=== PATIENT | male | born 1985 | race American Indian/Alaskan Native ===

== ENCOUNTER 2017-06-29 04:07 | Emergency (ER) | payer OTHER ==
[2017-06-29 04:22] VITALS: BP 123/85
[2017-06-29 07:22] LABS: Bilirubin,Urine NEG (Negative); Blood,Urine NEG (Negative); Ketones,Urine NEG (Negative); Leukocyte Esterase,Urine LG (Negative); Mucus,Urine FEW /HPF; Nitrite,Urine NEG (Negative)
[2017-06-29] MEDS ORDERED: XYLOCAINE 2% INFILTRATI ONE (07:51)
--- NOTE | 2017-06-29 07:51 | Emergency Department Report ---
- General Chief complaint: Skin/Abscess/Foreign Body Stated complaint: BOIL ON NECK Time Seen by Provider: 06/29/17 07:25 Source: patient Mode of arrival: Ambulatory Limitations: No Limitations - History of Present Illness Initial comments: 32-year-old male past medical history morbid obesity, history of sebaceous cysts presents with complaint of draining cyst to back of neck. Patient is awake alert and oriented 3 not in acute distress denies fevers or chills. States he has had this one for approximately one week. Denies any difficulty moving his neck. States it has been draining pus. MD complaint: abscess/boil Location: neck Severity: moderate Severity scale (0 -10): 4 Quality: aching Consistency: constant Treatments Prior to Arrival: none - Related Data Previous Rx's Medication Instructions Recorded Last Taken Type Cephalexin [Keflex] 500 mg PO BID #14 capsule 06/29/17 Unknown Rx Ibuprofen [Motrin] 800 mg PO Q8HR PRN #30 tablet 06/29/17 Unknown Rx Sulfamethoxazole/Trimethoprim 1 each PO BID #14 tablet 06/29/17 Unknown Rx [Bactrim DS TAB] Allergies Allergy/AdvReac Type Severity Reaction Status Date / Time No Known Allergies Allergy Unverified 05/21/13 14:38 Abscess Boil HPI - HPI Chief Complaint: Skin/Abscess/Foreign Body Stated Complaint: BOIL ON NECK Time Seen by Provider: 06/29/17 07:25 Home Medications: Previous Rx's Medication Instructions Recorded Last Taken Type Cephalexin [Keflex] 500 mg PO BID #14 capsule 06/29/17 Unknown Rx Ibuprofen [Motrin] 800 mg PO Q8HR PRN #30 tablet 06/29/17 Unknown Rx Sulfamethoxazole/Trimethoprim 1 each PO BID #14 tablet 06/29/17 Unknown Rx [Bactrim DS TAB] Allergies/Adverse Reactions: Allergies Allergy/AdvReac Type Severity Reaction Status Date / Time No Known Allergies Allergy Unverified 05/21/13 14:38 ED Review of Systems ROS: Stated complaint: BOIL ON NECK Other details as noted in HPI Constitutional: denies: chills, fever Eyes: denies: eye pain, eye discharge, vision change ENT: denies: ear pain, throat pain Respiratory: denies: cough, shortness of breath, wheezing Cardiovascular: denies: chest pain, palpitations Endocrine: no symptoms reported Gastrointestinal: denies: abdominal pain, nausea, diarrhea Genitourinary: denies: urgency, dysuria Musculoskeletal: denies: back pain, joint swelling, arthralgia Skin: denies: rash, lesions Neurological: denies: headache, weakness, paresthesias Psychiatric: denies: anxiety, depression Hematological/Lymphatic: denies: easy bleeding, easy bruising ED Past Medical Hx - Past Medical History Previous Medical History?: No Additional medical history: Morbid obesity - Surgical History Past Surgical History?: No Additional Surgical History: neck, left leg and head sx - Social History Smoking Status: Never Smoker Substance Use Type: None - Medications Home Medications: Home Medications Medication Instructions Recorded Confirmed Last Taken Type Cephalexin [Keflex] 500 mg PO BID #14 capsule 06/29/17 Unknown Rx Ibuprofen [Motrin] 800 mg PO Q8HR PRN #30 tablet 06/29/17 Unknown Rx Sulfamethoxazole/Trimethoprim 1 each PO BID #14 tablet 06/29/17 Unknown Rx [Bactrim DS TAB] ED Physical Exam - General Limitations: No Limitations General appearance: alert, in no apparent distress - Head Head exam: Present: atraumatic, normocephalic - Eye Eye exam: Present: normal appearance, PERRL, EOMI - ENT ENT exam: Present: mucous membranes moist - Neck Neck exam: Present: tenderness (tenerness posterior lateral neck about 4cm in diameter, no visible cellulitis), full ROM - Expanded Neck Exam Expanded 1 - abscess here - Respiratory Respiratory exam: Present: normal lung sounds bilaterally. Absent: respiratory distress - Cardiovascular Cardiovascular Exam: Present: regular rate, normal rhythm. Absent: systolic murmur, diastolic murmur, rubs, gallop - GI/Abdominal GI/Abdominal exam: Present: soft, normal bowel sounds - Rectal Rectal exam: Present: deferred - Extremities Exam Extremities exam: Present: normal inspection - Back Exam Back exam: Present: normal inspection - Neurological Exam Neurological exam: Present: alert, oriented X3, CN II-XII intact, normal gait - Psychiatric Psychiatric exam: Present: normal affect, normal mood - Skin Skin exam: Present: warm, dry, intact, normal color. Absent: rash ED Course Vital Signs 06/29/17 04:15 Temperature 97.7 F Pulse Rate 93 H Respiratory 20 Rate Blood Pressure 123/85 O2 Sat by Pulse 96 Oximetry - I & D Neck Type of Procedure: Simple Site: posterior neck Blade Size: 11 I & D Procedure: betadine prep Progress: Abscess/infected cyst posterior right lateral upper neck. Area infiltrated with lidocaine 2% without epinephrine. Good local anesthesia achieved. Single stab incision made. Moderate amount of pus drainage approximately 4-5 mL. Procedure tolerated well with minimal bleeding. No packing placed. Covered with gauze afterward. Wound culture sent. ED Medical Decision Making - Medical Decision Making A/P: Posterior neck abscess 1-significant decompression of abscess. Wound culture sent 2-Bactrim and Keflex twice a day for 7 days 3-Motrin 800 when necessary 4-advised patient to return to the ED for any worsening pain bleeding fevers chills or reaccumulation of abscess. Critical care attestation.: If time is entered above; I have spent that time in minutes in the direct care of this critically ill patient, excluding procedure time. ED Disposition Clinical Impression: Abscess, Encounter for incision and drainage procedure Disposition: - TO HOME OR SELFCARE Is pt being admited?: No Does the pt Need Aspirin: No Condition: Stable Instructions: Abscess Incision and Drainage (ED), Abscess (ED) Prescriptions: Cephalexin [Keflex] 500 mg PO BID #14 capsule Ibuprofen [Motrin] 800 mg PO Q8HR PRN #30 tablet PRN Reason: Pain Sulfamethoxazole/Trimethoprim [Bactrim DS TAB] 1 each PO BID #14 tablet Referrals: [facility] [Outside] - 3-5 Days [facility] [Outside] - 3-5 Days Forms: Accompanied Note, Work/School Release Form(ED) Time of Disposition: 08:28
--- NOTE | 2017-06-29 08:14 | XRay Report ---
NECK SOFT TISSUE RADIOGRAPHS INDICATION: Swelling. COMPARISON: None similar at this institution. FINDINGS: AP and lateral neck soft tissue radiographs demonstrate patent airway with grossly unremarkable epiglottic contour, to the extent assessed. Normal prevertebral soft tissues. Clear imaged lung apices. Mild C6 degenerative spurring anteroinferiorly and C2-C3 disc narrowing. CONCLUSION: No acute significant neck soft tissue radiographic abnormality, as described. Thank you for the opportunity to participate in this patient's care.
[2017-06-29] MEDS ORDERED: MOTRIN PO ONE (08:32)
== END 2017-06-29 08:41 | disposition home or self-care (01) ==
LOC: ED 04:07
DX: L02.11 Cutaneous abscess of neck (principal); E66.01 Morbid (severe) obesity due to excess calories
CPT/HCPCS: 70360; 81001; 87076; 87116; 87186

== ENCOUNTER 2017-12-02 07:50 | Emergency (ER) | payer OTHER ==
[2017-12-02 08:19] VITALS: BP 125/78
--- NOTE | 2017-12-02 10:17 | Emergency Department Report ---
- General Chief complaint: Skin/Abscess/Foreign Body Stated complaint: REACURRING CIST ON NECK Time Seen by Provider: 12/02/17 09:31 Source: patient Mode of arrival: Ambulatory Limitations: No Limitations - History of Present Illness Initial comments: 32-year-old male past medical history obesity, history of recurrent cysts and abscesses presents with complaint of discomfort on back of neck. Patient had an abscess incised and drained here several months ago. Patient denies any fevers or chills. States he feels slight irritation which is consistent with his previous symptoms with initial onset of cyst/abscesses. Located on the posterior aspect of his neck. Denies any difficulty moving his neck. States that he's only had symptoms for approximately 1-2 days. MD complaint: abscess/boil Onset/Timin -: days(s) Location: neck Severity: mild Severity scale (0 -10): 2 Quality: aching Consistency: intermittent Worsens with: palpation Context: none Treatments Prior to Arrival: none - Related Data Previous Rx's Medication Instructions Recorded Last Taken Type Cephalexin [Keflex] 500 mg PO BID #14 capsule 06/29/17 Unknown Rx Ibuprofen [Motrin] 800 mg PO Q8HR PRN #30 tablet 06/29/17 Unknown Rx Sulfamethoxazole/Trimethoprim 1 each PO BID #14 tablet 06/29/17 Unknown Rx [Bactrim DS TAB] Cephalexin [Keflex] 500 mg PO Q12HR #10 cap 12/02/17 Unknown Rx Ibuprofen [Motrin] 800 mg PO Q8HR PRN #15 tablet 12/02/17 Unknown Rx Sulfamethoxazole/Trimethoprim 1 each PO BID #14 tablet 12/02/17 Unknown Rx [Bactrim DS TAB] Allergies Allergy/AdvReac Type Severity Reaction Status Date / Time No Known Allergies Allergy Unverified 05/21/13 14:38 Abscess Boil HPI - HPI Chief Complaint: Skin/Abscess/Foreign Body Stated Complaint: REACURRING CIST ON NECK Time Seen by Provider: 12/02/17 09:31 Home Medications: Previous Rx's Medication Instructions Recorded Last Taken Type Cephalexin [Keflex] 500 mg PO BID #14 capsule 06/29/17 Unknown Rx Ibuprofen [Motrin] 800 mg PO Q8HR PRN #30 tablet 06/29/17 Unknown Rx Sulfamethoxazole/Trimethoprim 1 each PO BID #14 tablet 06/29/17 Unknown Rx [Bactrim DS TAB] Cephalexin [Keflex] 500 mg PO Q12HR #10 cap 12/02/17 Unknown Rx Ibuprofen [Motrin] 800 mg PO Q8HR PRN #15 tablet 12/02/17 Unknown Rx Sulfamethoxazole/Trimethoprim 1 each PO BID #14 tablet 12/02/17 Unknown Rx [Bactrim DS TAB] Allergies/Adverse Reactions: Allergies Allergy/AdvReac Type Severity Reaction Status Date / Time No Known Allergies Allergy Unverified 05/21/13 14:38 ED Review of Systems ROS: Stated complaint: REACURRING CIST ON NECK Other details as noted in HPI Constitutional: denies: chills, fever Eyes: denies: eye pain, eye discharge, vision change ENT: denies: ear pain, throat pain Respiratory: denies: cough, shortness of breath, wheezing Cardiovascular: denies: chest pain, palpitations Endocrine: no symptoms reported Gastrointestinal: denies: abdominal pain, nausea, diarrhea Genitourinary: denies: urgency, dysuria Musculoskeletal: denies: back pain, joint swelling, arthralgia Skin: denies: rash, lesions Neurological: denies: headache, weakness, paresthesias Psychiatric: denies: anxiety, depression Hematological/Lymphatic: denies: easy bleeding, easy bruising ED Past Medical Hx - Past Medical History Previous Medical History?: Yes Additional medical history: Morbid obesity, Boil on neck - Surgical History Past Surgical History?: Yes Additional Surgical History: neck, left leg and head sx - Social History Smoking Status: Never Smoker Substance Use Type: None - Medications Home Medications: Home Medications Medication Instructions Recorded Confirmed Last Taken Type Cephalexin [Keflex] 500 mg PO BID #14 capsule 06/29/17 Unknown Rx Ibuprofen [Motrin] 800 mg PO Q8HR PRN #30 tablet 06/29/17 Unknown Rx Sulfamethoxazole/Trimethoprim 1 each PO BID #14 tablet 06/29/17 Unknown Rx [Bactrim DS TAB] Cephalexin [Keflex] 500 mg PO Q12HR #10 cap 12/02/17 Unknown Rx Ibuprofen [Motrin] 800 mg PO Q8HR PRN #15 tablet 12/02/17 Unknown Rx Sulfamethoxazole/Trimethoprim 1 each PO BID #14 tablet 12/02/17 Unknown Rx [Bactrim DS TAB] ED Physical Exam - General Limitations: No Limitations General appearance: alert, in no apparent distress - Head Head exam: Present: atraumatic, normocephalic - Eye Eye exam: Present: normal appearance - ENT ENT exam: Present: mucous membranes moist - Neck Neck exam: Present: normal inspection - Respiratory Respiratory exam: Present: normal lung sounds bilaterally. Absent: respiratory distress - Cardiovascular Cardiovascular Exam: Present: regular rate, normal rhythm. Absent: systolic murmur, diastolic murmur, rubs, gallop - GI/Abdominal GI/Abdominal exam: Present: soft, normal bowel sounds - Rectal Rectal exam: Present: deferred - Extremities Exam Extremities exam: Present: normal inspection - Back Exam Back exam: Present: normal inspection - Neurological Exam Neurological exam: Present: alert, oriented X3 - Psychiatric Psychiatric exam: Present: normal affect, normal mood - Skin Skin exam: Present: warm, dry, intact, normal color. Absent: rash - Expanded Skin Exam Expanded Type of lesion: Present: abscess Description of rash: Present: tenderness, swelling 1 - Small possible early abscess approximately 1-2 cm in induration on palpation on back of neck crease. No external cellulitis or erythema. Minimal to no fluctuance on palpation. ED Course Vital Signs 12/02/17 08:15 Temperature 98.6 F Pulse Rate 90 Respiratory 18 Rate Blood Pressure 125/78 O2 Sat by Pulse 99 Oximetry - I & D Posterior Neck Type of Procedure: Simple Site: back of neck neck crease. Blade Size: 11 I & D Procedure: betadine prep Progress: Local anesthesia with lidocaine. Single stab incision made. Tiny amount of purulent drainage. Wound expressed via manual manipulation. Tolerated well with minimal bleeding. Some decompression of small abscess achieved. ED Medical Decision Making - Medical Decision Making A/P: Neck abscess/sebaceous cyst 1-as patient has history of recurrent abscesses/cysts I performed single stab incision to relieve any purulent collection underneath the skin. Tiny amount of purulent drainage. 2-Bactrim and Keflex twice a day 3-Motrin when necessary 4- patient advised to return to the ED for any increased pain reaccumulation of abscess fever or chills or difficulty moving his neck. Patient does not have these symptoms at this time. Critical care attestation.: If time is entered above; I have spent that time in minutes in the direct care of this critically ill patient, excluding procedure time. ED Disposition Clinical Impression: Abscess, Encounter for incision and drainage procedure Disposition: TO HOME OR SELFCARE Is pt being admited?: No Does the pt Need Aspirin: No Condition: Stable Instructions: Abscess (ED), Abscess Incision and Drainage (ED) Prescriptions: Cephalexin [Keflex] 500 mg PO Q12HR #10 cap Ibuprofen [Motrin] 800 mg PO Q8HR PRN #15 tablet PRN Reason: Pain Sulfamethoxazole/Trimethoprim [Bactrim DS TAB] 1 each PO BID #14 tablet Referrals: [facility] [Provider Group] - 3-5 Days Forms: Work/School Release Form(ED) Time of Disposition: 10:17
[2017-12-02] MEDS ORDERED: BACTRIM DS ONE (10:22)
[2017-12-02] MEDS ORDERED: BACTRIM DS PO ONE (10:23)
== END 2017-12-02 10:26 | disposition home or self-care (01) ==
LOC: ED 07:50
DX: L02.11 Cutaneous abscess of neck (principal); E66.01 Morbid (severe) obesity due to excess calories; Z68.44 Body mass index [BMI] 60.0-69.9, adult; Z79.899 Other long term (current) drug therapy

== ENCOUNTER 2017-12-09 16:24 | Emergency (ER) | payer OTHER ==
[2017-12-09 16:29] VITALS: BP 136/82
--- NOTE | 2017-12-09 18:15 | Emergency Department Report ---
Abscess Boil HPI - HPI Chief Complaint: Skin/Abscess/Foreign Body Stated Complaint: CYST ON NECK Time Seen by Provider: 12/09/17 17:58 Duration: 2 Days Severity: Mild History: Yes Pain, No Fever, No Purulent Drainage, No Numbness, No Foreign Body , No Previous History, No Insect Bite HPI: This is a 32-year-old male nontoxic, well nourished in appearance, no acute signs of distress presents to the ED with c/o of abscess to posterior neck region. Patient had a incision and drainage 2 weeks ago just a little above the abscess currently now. Patient denies any pus, drainage, fever, chills, nausea, vomiting, chest pain or SOB. Patient denies any allergies or significant past medical history. Home Medications: Previous Rx's Medication Instructions Recorded Last Taken Type Cephalexin [Keflex] 500 mg PO BID #14 capsule 06/29/17 Unknown Rx Ibuprofen [Motrin] 800 mg PO Q8HR PRN #30 tablet 06/29/17 Unknown Rx Sulfamethoxazole/Trimethoprim 1 each PO BID #14 tablet 06/29/17 Unknown Rx [Bactrim DS TAB] Cephalexin [Keflex] 500 mg PO Q12HR #10 cap 12/02/17 Unknown Rx Ibuprofen [Motrin] 800 mg PO Q8HR PRN #15 tablet 12/02/17 Unknown Rx Sulfamethoxazole/Trimethoprim 1 each PO BID #14 tablet 12/02/17 Unknown Rx [Bactrim DS TAB] Acetaminophen/Codeine [Tylenol 1 tab PO Q6H PRN #15 tab 12/09/17 Unknown Rx /Codeine # 3 tab] Clindamycin [Clindamycin CAP] 300 mg PO Q8H #21 cap 12/09/17 Unknown Rx Ibuprofen [Motrin] 600 mg PO Q8H PRN #30 tablet 12/09/17 Unknown Rx Allergies/Adverse Reactions: Allergies Allergy/AdvReac Type Severity Reaction Status Date / Time No Known Allergies Allergy Unverified 05/21/13 14:38 ED Review of Systems ROS: Stated complaint: CYST ON NECK Other details as noted in HPI Constitutional: denies: chills, fever Eyes: denies: eye pain, eye discharge, vision change ENT: denies: ear pain, throat pain Respiratory: denies: cough, shortness of breath, wheezing Cardiovascular: denies: chest pain, palpitations Endocrine: no symptoms reported Gastrointestinal: denies: abdominal pain, nausea, diarrhea Genitourinary: denies: urgency, dysuria Musculoskeletal: denies: back pain, joint swelling, arthralgia Skin: denies: rash, lesions Neurological: denies: headache, weakness, paresthesias Psychiatric: denies: anxiety, depression Hematological/Lymphatic: denies: easy bleeding, easy bruising ED Past Medical Hx - Past Medical History Previous Medical History?: Yes Additional medical history: Morbid obesity, Boil on neck - Surgical History Past Surgical History?: Yes Additional Surgical History: neck, left leg and head sx - Social History Smoking Status: Never Smoker Substance Use Type: None - Medications Home Medications: Home Medications Medication Instructions Recorded Confirmed Last Taken Type Cephalexin [Keflex] 500 mg PO BID #14 capsule 06/29/17 Unknown Rx Ibuprofen [Motrin] 800 mg PO Q8HR PRN #30 tablet 06/29/17 Unknown Rx Sulfamethoxazole/Trimethoprim 1 each PO BID #14 tablet 06/29/17 Unknown Rx [Bactrim DS TAB] Cephalexin [Keflex] 500 mg PO Q12HR #10 cap 12/02/17 Unknown Rx Ibuprofen [Motrin] 800 mg PO Q8HR PRN #15 tablet 12/02/17 Unknown Rx Sulfamethoxazole/Trimethoprim 1 each PO BID #14 tablet 12/02/17 Unknown Rx [Bactrim DS TAB] Acetaminophen/Codeine [Tylenol 1 tab PO Q6H PRN #15 tab 12/09/17 Unknown Rx /Codeine # 3 tab] Clindamycin [Clindamycin CAP] 300 mg PO Q8H #21 cap 12/09/17 Unknown Rx Ibuprofen [Motrin] 600 mg PO Q8H PRN #30 tablet 12/09/17 Unknown Rx ED Abscess Boil Physical Exam - Exam General: Vital signs noted. No distress. Alert and acting appropriately. GENERAL: The patient is a well-developed, well-nourished in no apparent distress. Patient is alert and acting appropriately for age. Alert and oriented 3, no apparent distress, normal gait, atraumatic. HEENT: Head is normocephalic and atraumatic. PERRL, Extraocular muscles are intact. Pupils are equal, round, and reactive to light and accommodation. Nares appeared normal. Mouth is well hydrated and without lesions. Mucous membranes are moist. Posterior pharynx clear of any exudate or lesions. Mouth is well hydrated and without lesions. Tonsils not erythematous or swollen. Uvula midline. Tongue elevated. Mucous members are moist. Posterior pharynx clear, no exudate or lesions. Patent airways. NECK: Supple. No carotid bruits. No lymphadenopathy or thyromegaly.nontender. No meningitic signs are noted. LUNGS: Clear to auscultation. Non labor breathing. No intercostal retractions. Symmetrical with respiration, no wheezing, no rales, or crackles. HEART: Regular rate and rhythm without murmur, rubs or gallops. No reproducible. S1, S2 present, regular rate and rhythm without murmur, no rubs, no gallops. ABDOMEN: Soft, nontender, and nondistended. Positive bowel sounds. No hepatosplenomegaly was noted. No guarding or rebound tenderness, negative epigastric bruit. Negative psoas sign, negative mendez sign, negative McBurneys sign EXTREMITIES: Without any cyanosis, clubbing, rash, lesions or edema. Peripheral pulses intact. Capillary refill less than 2 seconds. Full range of motion bilaterally. NEUROLOGIC: Cranial nerves II through XII are grossly intact. Alert and oriented x 3. Normal gait. Symmetrical strength and sensation. Reflexes 2+ throughout. Cerebellar testing normal. GCS score of 15. PSYCHIATRIC: Normal affect with no suicidal or homicidal ideations. Front/Back of Body, Lg (Color): 1 - abscess here Size: 3 cm Exam: Yes Tenderness, Yes Fluctuance, Yes Normal Neurologic Exam, Yes Normal Circulation, No Surrounding Cellulites/Erythema, No Lymphangitis, No Crepitation , No Heart Murmur I & D Note - I & D Note I & D Note: Under sterile field, I used Betadine to cleanse the area. I then used 1% lidocaine plain with 25-gauge 5/8 needle to inject area for anesthetic purposes. Total volume injected 3 mL. I then used an 11 blade to make a 1 cm incision. About 2 mL's of purulent drainage has been noted. I then used a hemostat to break the abscess formation. I then used sterile 0.9% normal saline flush to flush the wound with total volume of 40 mL used. I then put a 1 /4 iodoform packing to the incision. A sterile 4 x 4 with tape has been applied as dressing. Bleeding is under control. Patient tolerated the procedure well with no signs of distress noted. ED Course Vital Signs 12/09/17 16:26 Temperature 98.5 F Pulse Rate 87 Respiratory 16 Rate Blood Pressure 136/82 O2 Sat by Pulse 99 Oximetry - Reevaluation(s) Reevaluation #1: 12/09/17 18:16 Patient is speaking in full sentences with no signs of distress noted. Critical care attestation.: If time is entered above; I have spent that time in minutes in the direct care of this critically ill patient, excluding procedure time. ED Medical Decision Making - Medical Decision Making This is a 32-year-old female that presents with left posterior neck abscess. Patient is stable and was examined by me. This is incision and drainage and has been performed and patient tolerated well. A sterile dressing has been applied. Patient was educated on proper wound care. Patient is discharged with Clinda and Ultram and was instructed not to operate any machinery while taking Ultram due to drowsiness. Patient was instructed to return in 2 days for packing removal. Patient was instructed to refer to Follow-up with a primary care doctor in 3-5 days or if symptoms worsen and continue return to emergency room as soon as possible. At time of discharge, the patient does not seem toxic or ill in appearance. No acute signs of distress noted. Patient agrees to discharge treatment plan of care. No further questions noted by the patient. ED Disposition Clinical Impression: Abscess, Encounter for incision and drainage procedure Disposition: DC-01 TO HOME OR SELFCARE Is pt being admited?: No Does the pt Need Aspirin: No Condition: Stable Instructions: Abscess Incision and Drainage (ED), Abscess (ED), Tramadol (By mouth) Additional Instructions: Follow-up with a primary care doctor in 3-5 days or if symptoms worsen and continue return to emergency room as soon as possible. Return in 2 days for packing removal and reassessment of the abscess. Prescriptions: Acetaminophen/Codeine [Tylenol /Codeine # 3 tab] 1 tab PO Q6H PRN #15 tab PRN Reason: Pain Clindamycin [Clindamycin CAP] 300 mg PO Q8H #21 cap Ibuprofen [Motrin] 600 mg PO Q8H PRN #30 tablet PRN Reason: Pain Referrals: PRIMARY CARE, [Referring] - 3-5 Days SHUKRI CALI MD [Staff Physician] - 3-[address] [facility] [Outside] - 3-5 Days [facility] [Outside] - 3-5 Days Forms: Work/School Release Form(ED)
[2017-12-09] MEDS ORDERED: XYLOCAINE 1% MPF 5 mL INFILTRATI ONE (18:16)
[2017-12-09] MEDS ORDERED: MOTRIN PO ONE (18:16)
== END 2017-12-09 18:45 | disposition home or self-care (01) ==
LOC: ED 16:24
DX: L02.11 Cutaneous abscess of neck (principal)

== ENCOUNTER 2017-12-12 08:14 | Emergency (ER) | payer SELFPAY ==
[2017-12-12 08:17] VITALS: BP 137/81
--- NOTE | 2017-12-12 09:21 | Emergency Department Report ---
ED Recheck HPI - General Chief Complaint: Laceration/Recheck/Suture Stated Complaint: PACKING REMOVAL Time Seen by Provider: 12/12/17 08:52 Source: patient Mode of arrival: Ambulatory Limitations: No Limitations - History of Present Illness Initial Comments: This is a 32-year-old male known to me nontoxic, well nourished in appearance, no acute signs of distress presents to the ED with c/o of abscess packing removal and recheck that occurred 3 days ago. I/D has been performed by me. Patient denies any fever, chills, nausea, vomiting, chest pain shortness of breath. He stated he is currently taking his antibiotics. Patient stated a sore has significantly decreased. Patient denies any allergies. MD Complaint: wound re-check -: days(s) (3) Initial Visit For: abscess Returns Today for: wound recheck Symptoms Since Prior Visit: no new symptoms, improved Context: planned re-check Associated Symptoms: none. denies: fever, chills, chest pain, shortness of breath, rash, malaise, nasuea, abdominal pain - Related Data Previous Rx's Medication Instructions Recorded Last Taken Type Cephalexin [Keflex] 500 mg PO BID #14 capsule 06/29/17 Unknown Rx Ibuprofen [Motrin] 800 mg PO Q8HR PRN #30 tablet 06/29/17 Unknown Rx Sulfamethoxazole/Trimethoprim 1 each PO BID #14 tablet 06/29/17 Unknown Rx [Bactrim DS TAB] Cephalexin [Keflex] 500 mg PO Q12HR #10 cap 12/02/17 Unknown Rx Ibuprofen [Motrin] 800 mg PO Q8HR PRN #15 tablet 12/02/17 Unknown Rx Sulfamethoxazole/Trimethoprim 1 each PO BID #14 tablet 12/02/17 Unknown Rx [Bactrim DS TAB] Acetaminophen/Codeine [Tylenol 1 tab PO Q6H PRN #15 tab 12/09/17 Unknown Rx /Codeine # 3 tab] Clindamycin [Clindamycin CAP] 300 mg PO Q8H #21 cap 12/09/17 Unknown Rx Ibuprofen [Motrin] 600 mg PO Q8H PRN #30 tablet 12/09/17 Unknown Rx Allergies Allergy/AdvReac Type Severity Reaction Status Date / Time No Known Allergies Allergy Verified 12/12/17 08:15 ED Review of Systems ROS: Stated complaint: PACKING REMOVAL Other details as noted in HPI Constitutional: denies: chills, fever Eyes: denies: eye pain, eye discharge, vision change ENT: denies: ear pain, throat pain Respiratory: denies: cough, shortness of breath, wheezing Cardiovascular: denies: chest pain, palpitations Endocrine: no symptoms reported Gastrointestinal: denies: abdominal pain, nausea, diarrhea Genitourinary: denies: urgency, dysuria Musculoskeletal: denies: back pain, joint swelling, arthralgia Skin: denies: rash, lesions Neurological: denies: headache, weakness, paresthesias Psychiatric: denies: anxiety, depression Hematological/Lymphatic: denies: easy bleeding, easy bruising ED Past Medical Hx - Past Medical History Previous Medical History?: No Additional medical history: Morbid obesity, Boil on neck - Surgical History Additional Surgical History: neck, left leg and head sx - Social History Smoking Status: Never Smoker Substance Use Type: None - Medications Home Medications: Home Medications Medication Instructions Recorded Confirmed Last Taken Type Cephalexin [Keflex] 500 mg PO BID #14 capsule 06/29/17 Unknown Rx Ibuprofen [Motrin] 800 mg PO Q8HR PRN #30 tablet 06/29/17 Unknown Rx Sulfamethoxazole/Trimethoprim 1 each PO BID #14 tablet 06/29/17 Unknown Rx [Bactrim DS TAB] Cephalexin [Keflex] 500 mg PO Q12HR #10 cap 12/02/17 Unknown Rx Ibuprofen [Motrin] 800 mg PO Q8HR PRN #15 tablet 12/02/17 Unknown Rx Sulfamethoxazole/Trimethoprim 1 each PO BID #14 tablet 12/02/17 Unknown Rx [Bactrim DS TAB] Acetaminophen/Codeine [Tylenol 1 tab PO Q6H PRN #15 tab 12/09/17 Unknown Rx /Codeine # 3 tab] Clindamycin [Clindamycin CAP] 300 mg PO Q8H #21 cap 12/09/17 Unknown Rx Ibuprofen [Motrin] 600 mg PO Q8H PRN #30 tablet 12/09/17 Unknown Rx ED Physical Exam - General Limitations: No Limitations General appearance: alert, in no apparent distress - Head Head exam: Present: atraumatic, normocephalic - Eye Eye exam: Present: normal appearance - ENT ENT exam: Present: normal exam, mucous membranes moist - Neck Neck exam: Present: normal inspection, full ROM - Respiratory Respiratory exam: Present: normal lung sounds bilaterally. Absent: respiratory distress - Cardiovascular Cardiovascular Exam: Present: regular rate, normal rhythm. Absent: systolic murmur, diastolic murmur, rubs, gallop - GI/Abdominal GI/Abdominal exam: Present: soft, normal bowel sounds - Rectal Rectal exam: Present: deferred - Extremities Exam Extremities exam: Present: normal inspection - Back Exam Back exam: Present: normal inspection - Neurological Exam Neurological exam: Present: alert, oriented X3 - Psychiatric Psychiatric exam: Present: normal affect, normal mood - Skin Skin exam: Present: warm, dry, intact, normal color. Absent: rash ED Course Vital Signs 12/12/17 08:15 Temperature 98.2 F Pulse Rate 100 H Respiratory 20 Rate Blood Pressure 137/81 O2 Sat by Pulse 98 Oximetry - Reevaluation(s) Reevaluation #1: 12/12/17 09:19 Patient is speaking in full sentences with no signs of distress noted. ED Recheck MDM - Medical Decision Making 07/08 iodoform packing removed. Healing well. No pus or drainage. Nontender to touch induration or fluctuance noted. Patient was instructed to continue taking antibiotics. Sterile dressing applied. Critical care attestation.: If time is entered above; I have spent that time in minutes in the direct care of this critically ill patient, excluding procedure time. ED Disposition Clinical Impression: Abscess packing removal Disposition: [id number] TO HOME OR SELFCARE Is pt being admited?: No Does the pt Need Aspirin: No Condition: Stable Additional Instructions: Follow-up with a primary care doctor in 3-5 days or if symptoms worsen and continue return to emergency room as soon as possible. Continue taking antibiotics as prescribed to you during the previous visit. Referrals: PRIMARY CARE, [Primary Care Provider] - 3-5 Days
[2017-12-12] MEDS ORDERED: MOTRIN ONE (09:24)
[2017-12-12] MEDS ORDERED: MOTRIN PO ONE (09:27)
== END 2017-12-12 09:30 | disposition home or self-care (01) ==
LOC: ED 08:14
DX: Z48.01 Encounter for change or removal of surgical wound dressing (principal); E66.01 Morbid (severe) obesity due to excess calories